=== PATIENT | male | born 1970 | race African-American/Black ===

== ENCOUNTER 2016-11-27 11:30 | Emergency (ER) | payer OTHER ==
[~2016-11-27] VITALS: Ht 177.8 cm; Wt 90.7 kg
[2016-11-27 11:34] VITALS: BP_SYST 129
[2016-11-27] MEDS ORDERED: KETOROLAC TROMETHAMINE 60 MG/2 ML VIAL IM ONE (12:15)
[2016-11-27 14:25] VITALS: BP_SYST 111
== END 2016-11-27 14:25 | disposition short-term general hospital (02) ==
LOC: SED 11:30
DX: S82.141A Displaced bicondylar fracture of right tibia, initial encounter for closed fracture (principal); R03.0 Elevated blood-pressure reading, without diagnosis of hypertension; W50.0XXA Accidental hit or strike by another person, initial encounter; Y93.64 Activity, baseball; Y92.39 Other specified sports and athletic area as the place of occurrence of the external cause; Y99.8 Other external cause status
CPT/HCPCS: 29505; 73564; 96372; 99284; J1885